=== PATIENT | female | born 1960 | race Caucasian/White ===

== ENCOUNTER 2016-10-28 17:19 | Emergency (ER) | payer OTHER | END 2016-10-28 22:18 | disposition home or self-care (01) | LOC: ER 17:19 | DX: S30.1XXA Contusion of abdominal wall, initial encounter (principal); L03.311 Cellulitis of abdominal wall; R11.0 Nausea; F31.9 Bipolar disorder, unspecified; I10 Essential (primary) hypertension; J44.9 Chronic obstructive pulmonary disease, unspecified; E07.9 Disorder of thyroid, unspecified; Z79.899 Other long term (current) drug therapy; Z88.1 Allergy status to other antibiotic agents; V49.40XA Driver injured in collision with unspecified motor vehicles in traffic accident, initial encounter | CPT/HCPCS: 36415; Q9967 ==